=== PATIENT | male | born 1965 | race Caucasian/White ===

== ENCOUNTER 2022-10-27 15:37 | Emergency (ER) | payer MEDICAID, OTHER ==
[~2022-10-27] VITALS: Ht 182.9 cm; Wt 159.0 kg
[2022-10-27 15:57] VITALS: BP 138/90; PULSE 108; RESP 18; TEMP 98.5; O2SAT 95
[2022-10-27] MEDS ORDERED: POLY119P2 MT (18:10)
[2022-10-27] MEDS ORDERED: MAGN296S70 MT (18:11)
== END 2022-10-27 19:15 | disposition home or self-care (01) ==
LOC: ER 15:37
DX: K59.00 Constipation, unspecified (principal); I10 Essential (primary) hypertension; Z98.890 Other specified postprocedural states
CPT/HCPCS: 74018; 99283